=== PATIENT | female | born 1990 | race African-American/Black ===

== ENCOUNTER 2016-08-10 22:43 | Emergency (ER) | payer OTHER ==
[~2016-08-10] VITALS: Ht 160 cm; Wt 67.3 kg
[2016-08-10 22:50] VITALS: Ht 160 cm; Wt 67.3 kg
--- NOTE | 2016-08-10 23:04 | ERA ---
ER Documentation Chief Complaint Date/Time DATE: 08/10/16 TIME: 23:04 Chief Complaint BIBA, c/o anxiety,hx HIV positive HPI The patient is a 25-year-old female,, presenting to the ER because of acute anxiety attack, happened shortly prior to arrival. She felt much better at this time. She denies syncope, near syncope, neck pain, chest pain,, dyspnea, abdominal pain, vomiting, dysuria, diarrhea. She does not smoke, drink Past medical history: HIV, anxiety Past surgical history: None ROS All systems reviewed and are negative except as per history of present illness. Medications Home Meds Active Scripts Sulfamethoxazole-Trimethoprim* (Bactrim* DS) 800-160 Mg Tab, 1 TAB PO BID for 5 Days, TAB Prov:JEROME CARLIN MD 08/11/16 Allergies Allergies: Coded Allergies: No Known Allergy (Unverified , 08/10/16) PMhx/Soc Medical and Surgical Hx: pt denies Surgical Hx Hx Miscellaneous Medical Probl: Yes (HIV) Hx Alcohol Use: No Hx Substance Use: No Hx Tobacco Use: No Smoking Status: Unknown if ever smoked Physical Exam Vitals Vital Signs Date Time Temp Pulse Resp B/P Pulse Ox O2 Delivery O2 Flow Rate FiO2 08/10/16 22:50 98.5 82 18 130/99 100 Physical Exam Const: No acute distress. Anxious Head: Atraumatic. Eyes: Normal Conjunctiva. ENT: Normal External Ears, Nose and Mouth. Neck: Full range of motion. No meningismus. Resp: Clear to auscultation bilaterally. Cardio: Regular rate and rhythm, no murmurs. Abd: Soft, non distended, normal bowel sounds, non tender. Skin: No petechiae or rashes. Back: No midline or flank tenderness. Ext: No cyanosis, or edema. Neur: Awake and alert. No focal deficit Psych: Normal Mood and Affect. Result Diagram: 08/10/16 2348 08/10/16 2348 Results 24 hrs Laboratory Tests Test 08/10/16 23:48 08/11/16 00:01 08/11/16 00:10 White Blood Count 7.510^3/ul Red Blood Count 3.8310^6/ul Hemoglobin 12.1g/dl Hematocrit 35.7% Mean Corpuscular Volume 93.2fl Mean Corpuscular Hemoglobin 31.6pg Mean Corpuscular Hemoglobin Concent 33.9g/dl Red Cell Distribution Width 11.6% Platelet Count 19647^3/UL Mean Platelet Volume 10.0fl Neutrophils % 62.6% Lymphocytes % 29.0% Monocytes % 6.4% Eosinophils % 1.3% Basophils % 0.4% Nucleated Red Blood Cells % 0.0/100WBC Neutrophils # 4.710^3/ul Lymphocytes # 2.210^3/ul Monocytes # 0.510^3/ul Eosinophils # 0.110^3/ul Basophils # 0.010^3/ul Nucleated Red Blood Cells # 0.010^3/ul Prothrombin Time 13.0Sec Prothrombin Time Ratio 1.0 INR International Normalized Ratio 0.98 Activated Partial Thromboplast Time 26.9Sec D-Dimer < 220.00ng/ml D-Dimer Comment Sodium Level 140mmol/L Potassium Level 3.8mmol/L Chloride Level 104mmol/L Carbon Dioxide Level 26mmol/L Anion Gap 14 Blood Urea Nitrogen 7mg/dl Creatinine 0.44mg/dl Glucose Level 103mg/dl Calcium Level 8.8mg/dl Bedside Urine pH (LAB) 7.0 Bedside Urine Protein (LAB) Negative Bedside Urine Glucose (UA) Negative Bedside Urine Ketones (LAB) Negative Bedside Urine Blood 3+ Bedside Urine Nitrite (LAB) Negative Bedside Urine Leukocyte Esterase (L 1+ Bedside Glucose 89mg/dL Procedures/MDM EKG: Read by emergency physician Rate/Rhythm: Normal Sinus Rhythm 67 beats/min QRS, ST, T-waves: No ST elevation, nonspecific T abnormality Impression: Abnormal EKG MEDICAL MAKING DECISION: The patient is a 25-year-old female, presenting with acute anxiety attack, acute cystitis. She remains well in the emergency department. The differential diagnoses considered include but are not limited to panic attack, stress, anxiety attack, asthma, COPD, pneumonia, pulmonary embolus, pleural effusion, congestive heart failure. Departure Diagnosis: Primary Impression: Anxiety attack Additional Impression: UTI (urinary tract infection) Condition: Good Comments She was discharge with Bactrim DS I discussed the findings with the patient. I advised the patient to follow-up with the primary physician in about 1-2 days, sooner if needed and return if any concern. The patient's blood pressure was elevated (>120/80) but appears stable without evidence of hypertension emergency or urgency. The patient was counseled about the risks of hypertension and urged to pursue outpatient monitoring and therapy within a week with their primary care physician. JEROME CARLIN MD Aug 10, 2016 23:04
[2016-08-11 00:03] LABS: URINE BLOOD (Dip) POC 3+ (NEGATIVE)
[2016-08-11 00:03] LABS: ADD SCAN DIFF NO
[2016-08-11 00:05] LABS: BASOPHILS % 0.4 % (0.0-2.0); EOSINOPHILS # 0.1 10^3/ul (0.0-0.5); EOSINOPHILS % 1.3 % (0.0-7.0); HEMATOCRIT 35.7 % (37.0-47.0); HEMOGLOBIN 12.1 g/dl (12.0-16.0); LYMPHOCYTES # 2.2 10^3/ul (0.8-2.9); MEAN CORPUSCULAR HEMOGLOBIN 31.6 pg (29.0-33.0); MEAN CORPUSCULAR HGB CONC 33.9 g/dl (32.0-37.0); MEAN CORPUSCULAR VOLUME 93.2 fl (82.0-101.0); MONOCYTE # 0.5 10^3/ul (0.3-0.9); MONOCYTES % 6.4 % (0.0-11.0); NEUTROPHIL # 4.7 10^3/ul (1.6-7.5); NEUTROPHILS % 62.6 % (39.0-77.0); PLATELET COUNT 202 10^3/UL (140-415); RED BLOOD COUNT 3.83 10^6/ul (4.20-5.40); RED CELL DISTRIBUTION WIDTH 11.6 % (11.5-14.5); WHITE BLOOD COUNT 7.5 10^3/ul (4.8-10.8)
[2016-08-11 00:17] LABS: POTASSIUM 3.8 mmol/L (3.5-5.1)
[2016-08-11 00:20] LABS: CREATININE 0.44 mg/dl (0.44-1.00); INR 0.98; PARTIAL THROMBOPLASTIN TIME 26.9 Sec (25.0-35.0)
[2016-08-11 00:21] LABS: CALCIUM 8.8 mg/dl (8.4-10.2)
[2016-08-11 01:40] LABS: D-DIMER < 220.00 ng/ml (<460)
[2016-08-11] MEDS ORDERED: BACTDS PO (01:46)
[2016-08-11 02:08] VITALS: BP 111/68; PULSE 70; RESP 18; TEMP 98.7
== END 2016-08-11 02:08 | disposition home or self-care (01) ==
LOC: E/R 22:43
DX: F41.9 Anxiety disorder, unspecified (principal); R40.2142 Coma scale, eyes open, spontaneous, at arrival to emergency department; N39.0 Urinary tract infection, site not specified; R94.31 Abnormal electrocardiogram [ECG] [EKG]; R40.2252 Coma scale, best verbal response, oriented, at arrival to emergency department; R40.2362 Coma scale, best motor response, obeys commands, at arrival to emergency department
CPT/HCPCS: 36415; 80048; 81003; 82962; 85025; 85378; 85610; 85730; 93005

== ENCOUNTER 2017-02-09 02:54 | Emergency (ER) | payer OTHER ==
[~2017-02-09] VITALS: Ht 165.1 cm; Wt 71.8 kg
[~2017-02-09 02:54] MED LIST: BACTDS PO
[2017-02-09 03:01] VITALS: Ht 165.1 cm; Wt 71.8 kg
[2017-02-09 03:06] VITALS: TEMP 98.9
[2017-02-09 03:20] LABS: BASOPHILS % 0.6 % (0.0-2.0); EOSINOPHILS # 0.1 10^3/ul (0.0-0.5); EOSINOPHILS % 1.2 % (0.0-7.0); HEMATOCRIT 37.2 % (37.0-47.0); HEMOGLOBIN 11.8 g/dl (12.0-16.0); LYMPHOCYTES # 3.8 10^3/ul (0.8-2.9); LYMPHOCYTES % 56.2 % (15.0-51.0); MEAN CORPUSCULAR HEMOGLOBIN 28.6 pg (29.0-33.0); MEAN CORPUSCULAR HGB CONC 31.7 g/dl (32.0-37.0); MEAN CORPUSCULAR VOLUME 90.3 fl (82.0-101.0); MEAN PLATELET VOLUME 10.5 fl (7.4-10.4); MONOCYTE # 0.6 10^3/ul (0.3-0.9); MONOCYTES % 9.2 % (0.0-11.0); NEUTROPHIL # 2.2 10^3/ul (1.6-7.5); NEUTROPHILS % 32.8 % (39.0-77.0); PLATELET COUNT 275 10^3/UL (140-415); RED BLOOD COUNT 4.12 10^6/ul (4.20-5.40); RED CELL DISTRIBUTION WIDTH 12.5 % (11.5-14.5); WHITE BLOOD COUNT 6.7 10^3/ul (4.8-10.8)
[2017-02-09 03:42] LABS: CALCIUM 9.6 mg/dl (8.4-10.2); CREATININE 0.66 mg/dl (0.44-1.00)
[2017-02-09] MEDS ORDERED: EMTR1TAB10 PO (03:53)
[2017-02-09 03:54] LABS: TROPONIN-I 0.016 ng/ml (0.00-0.12)
--- NOTE | 2017-02-09 04:05 | ERD ---
ER Documentation Chief Complaint Date/Time DATE: 02/09/17 TIME: 04:01 Chief Complaint HPI This is a 26-year-old female who presents to the emergency room for evaluation of weakness. This patient was helped out of her car and was stating she could not walk. This patient was given ammonia salts and was more alert today and states that she is just feeling weak after work. She states that she does have a history of HIV however she states that she is on antiviral therapy and has an undetectable viral load. ROS All systems reviewed and are negative except as per history of present illness. Medications Home Meds Reported Medications Yahgcepzkvvfq-Qedmruigznw-Mhoglubku (Complera) 1 Each Tablet, 1 TAB PO DAILY, TAB 02/09/17 Discontinued Scripts Sulfamethoxazole-Trimethoprim* (Bactrim* DS) 800-160 Mg Tab, 1 TAB PO BID for 5 Days, TAB Prov:JEROME CARLIN MD 08/11/16 Allergies Allergies: Coded Allergies: No Known Allergy (Unverified , 08/10/16) PMhx/Soc History of Surgery: Yes (Breast nodule removal) Anesthesia Reaction: No Hx Neurological Disorder: No Hx Respiratory Disorders: No Hx Cardiac Disorders: No Hx Psychiatric Problems: No Hx Miscellaneous Medical Probl: Yes (HIV+) Hx Alcohol Use: No Hx Substance Use: No Hx Tobacco Use: No Smoking Status: Never smoker Physical Exam Vitals Vital Signs Date Time Temp Pulse Resp B/P Pulse Ox O2 Delivery O2 Flow Rate FiO2 02/09/17 03:06 98.9 68 135/100 100 Room Air 02/09/17 03:01 98.9 73 17 135/100 100 Physical Exam INITIAL VITAL SIGNS: Reviewed by me GENERAL: The patient is well developed and appropriate for usual state of health in no apparent distress HEENT: Pupils equal, round, and reactive to light. EOMI. There is no scleral icterus. NECK: C-spine is soft and supple, there is no meningismus. There is no cervical lymphadenopathy. LUNGS: Clear to auscultation bilaterally. There are no rales, wheezes or rhonchi. HEART: Regular rate and rhythm, no murmurs, clicks, rubs or gallops. ABDOMEN: Soft, non-tender, non-distended. There are bowel sounds in all four quadrants. No rebound or guarding. EXTREMITIES: There is no peripheral cyanosis or edema. No focal swelling or erythema. NEUROLOGICAL: The patient moves all four extremities with 5/5 strength. Cranial nerves II - XII are intact. Normal gait. Alert and oriented SKIN: There is no apparent rash or petechiae. HEME/LYMPHATIC: There is no evidence of excessive bruising or lymphedema. PSYCHIATRIC: The patient does appear mildly anxious Result Diagram: 02/09/17 0300 02/09/17 0300 Results 24 hrs Laboratory Tests Test 02/09/17 03:00 White Blood Count 6.710^3/ul Red Blood Count 4.1210^6/ul Hemoglobin 11.8g/dl Hematocrit 37.2% Mean Corpuscular Volume 90.3fl Mean Corpuscular Hemoglobin 28.6pg Mean Corpuscular Hemoglobin Concent 31.7g/dl Red Cell Distribution Width 12.5% Platelet Count 67357^3/UL Mean Platelet Volume 10.5fl Neutrophils % 32.8% Lymphocytes % 56.2% Monocytes % 9.2% Eosinophils % 1.2% Basophils % 0.6% Nucleated Red Blood Cells % 0.0/100WBC Neutrophils # 2.210^3/ul Lymphocytes # 3.810^3/ul Monocytes # 0.610^3/ul Eosinophils # 0.110^3/ul Basophils # 0.010^3/ul Nucleated Red Blood Cells # 0.010^3/ul Sodium Level 142mmol/L Potassium Level 4.0mmol/L Chloride Level 104mmol/L Carbon Dioxide Level 28mmol/L Anion Gap 14 Blood Urea Nitrogen 8mg/dl Creatinine 0.66mg/dl Glucose Level 82mg/dl Calcium Level 9.6mg/dl Troponin I 0.016ng/ml [facility] EKG: Rate/Rhythm: No focal neurological deficits. QRS, ST, T-waves: [No changes consistent w/ acute ischemia] Impression: [No evidence of ischemia or arrhythmia] Chest X-ray 1V Interpreted by me: Soft Tissue: No acute abnormalities Bones: No acute abnormalities Mediastinum/Cardiac Silhouette/Lungs: [No acute abnormalities] This 26-year-old female presents to the emergency room for evaluation of generalized weakness. The patient was given ammonia salts arrived in the emergency room. The patient had no focal neurological deficits in the emergency room, however she did appear anxious. The patient underwent a cardiac workup in the emergency room including EKG which is nonischemic, troponin negative, and chest x-ray which is clear. Looked up this patient's previous medical record and it appears that this patient presented the same way in July and had a completely negative workup. I do feel that this patient could have stress and anxiety is a component of her symptoms. The patient will be discharged at this time Departure Diagnosis: Primary Impression: Acute weakness Additional Impression: Stress reaction Condition: Stable SHERYL SANDOVAL DO Feb 09, 2017 04:05
--- NOTE | 2017-02-09 04:08 | RADRPT ---
PROCEDURE: XR Chest. CLINICAL INDICATION: Chest pain TECHNIQUE: Single frontal view of the chest was obtained COMPARISON: None FINDINGS: The heart and mediastinum are within normal limits. The lungs are clear. There is no pleural effusion or pneumothorax. ECG leads projected over the chest. IMPRESSION: No acute disease. RPTAT: HJES .James Cabrera MD, MD Date Time Electronically viewed and signed by .James Cabrera MD, on 02/09/2017 04:08 .S/
[2017-02-09 04:25] VITALS: BP 135/113; PULSE 65; RESP 84
== END 2017-02-09 04:30 | disposition home or self-care (01) ==
LOC: E/R 02:54
DX: R53.1 Weakness (principal); R40.2252 Coma scale, best verbal response, oriented, at arrival to emergency department; F43.0 Acute stress reaction; R40.2142 Coma scale, eyes open, spontaneous, at arrival to emergency department; R40.2362 Coma scale, best motor response, obeys commands, at arrival to emergency department
CPT/HCPCS: 36415; 71010; 80048; 84484; 85025; 93005; Z7502; Z7610